=== PATIENT | female | born 1960 | race Caucasian/White ===

== ENCOUNTER → 2016-09-26 06:23 | Day surgery (SDC) | payer BC ==
--- NOTE | 2016-09-18 15:30 | HP ---
HISTORY AND PHYSICAL: DATE OF ADMISSION/SURGERY: 09/26/16 DATE OF OFFICE VISIT: 09/13/16 SURGEON: Alessandra Barone MD PROCEDURES: Right knee arthroscopy with partial medial and lateral meniscectomies, possible chondroplasty, possible synovectomy. CHIEF COMPLAINT: Right knee pain. HISTORY OF PRESENT ILLNESS: Ms. Cortés is a 56-year-old female with complaints of right knee pain. Her MRI showed medial and lateral meniscus tears and she has elected to proceed with a right knee arthroscopy with partial medial and lateral meniscectomies. The surgery is scheduled for 09/26/[address] Barone. PAST MEDICAL HISTORY: Hypertension, GERD, and obesity. PAST SURGICAL HISTORY: Gastric bypass, umbilical hernia repair, hysterectomy, anal fistula surgery, and kidney stone removal. CURRENT MEDICATIONS: 1. Meloxicam. 2. Multivitamin. 3. Garlic. 4. Garcinia cambogia. 5. Tylenol. ALLERGIES: LATEX and ADHESIVE TAPES. FAMILY HISTORY: Hypertension. SOCIAL HISTORY: She is a 56-year-old female. She lives alone. She works at [employer] in the [employer]. She denies use of tobacco, alcohol, or drugs. REVIEW OF SYSTEMS: A complete 14-point review of systems was reviewed with the patient, all is negative and noncontributory. PHYSICAL EXAMINATION GENERAL: She is well developed, well nourished, in no acute distress. VITAL SIGNS: She stands 5 feet 2 inches tall, weighs 220 pounds. Her blood pressure is 129/79, her heart rate is 88. HEENT: Normocephalic, atraumatic. NECK: Supple. No palpable lymph nodes. Trachea is midline. PULMONARY: The lungs are clear to auscultation bilaterally. CARDIO: Regular rate and rhythm. Strong S1, S2. No murmurs, gallops, or rubs. ABDOMEN: Soft, nontender, nondistended. NEUROLOGIC: She is alert and oriented x3. Cranial nerves II through XII are intact. MUSCULOSKELETAL: Right lower extremity, the skin is intact. There is a mild joint effusion. Tenderness over the medial and lateral joint line. She has full range of motion. Her lower extremity muscle group strengths are intact at 5/5. She has 2+ dorsalis pedis pulses and intact sensation. ASSESSMENT AND PLAN: Ms. Cortés is a 56-year-old female with complaints of right knee pain. Her MRI showed medial and lateral meniscus tear. She has elected to proceed with surgery. The surgery is scheduled for 09/26/[address] Barone discussed the risks and benefits of the surgery at today' s visit and all of her answers were answered. She will follow up with Dr. Barone 10 to 14 days after the surgery. DAMARI HOLT [id number]/[facility] #: [id number] MTDD
[~2016-09-26 06:23] MED LIST: Buffered Lidocaine 1% SYRIN* 3 ML/SYR SYRINGE INTRADERM ONE; Bupivacaine 0.5% SDV PF* 30 ML VIAL ONE; Dexamethasone IV* 4 MG/ML 1 ML (4 MG) IV SLOW PU ONE; Dexamethasone IV* 4 MG/ML 1 ML (4 MG) ONE; DiMENhydriNATE IV* 50 MG/ML VIAL IV PUSH PRN; EPINEPHrine AMP 1 MG/ML ONE; Famotidine IV* 10 MG/ML 2 ML (20 mg) IV ONE; Famotidine IV* 10 MG/ML 2 ML (20 mg) ONE; HYDROmorphone* 1 MG/ML 1 ML SYR ONE; Ketorolac INJ* 30 MG/ML 1 ML VIAL ONE; Lidocaine 2% PF * 5 ML VIAL ONE; Midazolam* 1 MG/ML 2 ML VIAL (2 MG) ONE; Ondansetron INJ* 2 MG/ML VIAL IV PRN; Ondansetron INJ* 2 MG/ML VIAL ONE; PROCHLORPERAZINE INJ 5 MG/ML 2 ML VIAL IV PRN; Propofol* 10 MG/ML 20 ML BTL IV PUSH ONE; Scopolamine 1.5 mg* PATCH TRANSDERM PRN; Scopolomine PATCH Remove* 1 NOTE MISC PATCH OFF ONE; ceFAZolin 2 GM PREMIX(*) 2 GM/50 ML BAG IVPB ONE; fentaNYL* 50 MCG/ML 2 ML VIAL (100 MCG VIAL) IV PRN; fentaNYL* 50 MCG/ML 2 ML VIAL (100 MCG VIAL) ONE; methylPREDNISolone ACETATE 80* 80 MG/ML 1 ML VIAL ONE
[2016-09-26 10:01] VITALS: BP 121/69
--- NOTE | 2016-09-27 02:12 | OP ---
DATE OF OPERATION: 09/26/16 - [facility] DATE OF : 60 SURGEON: Alessandra Barone MD CONTROL PANEL OPERATOR CRUDE UNIT: DAMARI Cabrera. This geriatric nursing assistant was crucial to the procedure throughout preparation, retraction, manipulation of the leg and wound closure. ANESTHESIOLOGIST: Dr. Davis. ANESTHESIA: General. PRE-OP DIAGNOSIS: Right knee pain with osteoarthritis, medial meniscal tear, lateral meniscal tear. POST-OP DIAGNOSIS: Right knee severe degenerative osteoarthritis with radial tear on the posterior medial meniscus and bucket handle tear of the lateral meniscus. OPERATIVE PROCEDURE: Right knee arthroscopy with partial medial meniscectomy and partial lateral meniscectomy as well as patellofemoral chondroplasty. EBL: 50 cc. COMPLICATIONS: None. SPECIMEN: None. BRIEF HISTORY/INDICATIONS: Ms. Cortés is a 56-year-old female with over two months of severe right knee pain and swelling. MRI showed medial and lateral meniscal tear. Her plain films also showed some arthritic changes. The patient failed conservative treatment with physical therapy and intraarticular steroid injection as well as anti-inflammatories. She elected to undergo right knee arthroscopy with partial meniscectomies and possible chondroplasty. Informed consent was obtained from the patient. She understood the risks of the procedure included but were not limited to bleeding, infection, damage to nearby structures, continued pain, need for further surgery, stroke, heart attack, blood clot and . She understood she would continue to have arthritic pain down the road. INTRAOPERATIVE FINDINGS: Intraoperatively, the patient was noted to have a radial tear of the posterior medial meniscus. She had a large displaced bucket- handle tear of the lateral meniscus involving the white-red zone. She had grade 3 and 4 severe [place] cartilage changes. This was severe tricompartmental osteoarthritis with exposed subchondral bone in the medial, lateral and patellofemoral compartments. DESCRIPTION OF PROCEDURE: Ms. Cortés was identified in the preanesthesia unit. Her right lower extremity was marked as the correct operative site. Informed consent was signed and placed in the chart. The patient was taken to the operating room and placed under general anesthesia. Tourniquet was placed on the right thigh, but was not inflated. Right lower extremity was prepped and draped in the usual sterile fashion. Preop time-out was made to correctly identify the patient side and site. Appropriate perioperative antibiotics were given within 1 hour of incision. A 0.5 cm standard anterolateral portal incision was made along the lateral joint line. Trocar was introduced. Light and water sources were turned on and there was immediate visualization of the knee joint. A tour of the knee joint was made. Suprapatellar pouch had no obvious abnormality. The patellofemoral compartment had cartilage flapping along the medial and lateral patella as well as exposed subchondral bone in the trochlear groove of the femur. The medial gutter had no obvious loose body or plica. Medial compartment had an obvious radial type tear in the posterior medial meniscus. Medial femoral condyle had exposed subchondral bone in a large area of the weightbearing surface. ACL appeared to be intact. The knee was placed in a [id number] position. There was a large displaced meniscal fragment that made visualization difficult. Lateral femoral condyle had exposed subchondral bone with cartilage wear. Under direct visualization, a medial portal incision was made with a 15 blade. A probe was introduced. A second tour of the knee joint was performed. Shaver was placed anteriorly to debride some synovitis. This allowed a better view of the medial and lateral compartments. Straight biter and shaver were used to perform partial medial meniscectomy along the white red zone of the posterior medial meniscus. A smooth border was obtained. The knee was placed in a figure -of-four position. A probe reduced the displaced bucket-handle tear of the lateral meniscus. This was carefully excised with a straight biter and shaver. Probe was used to ensure there was no other displaced meniscal fragments. This was carried out in the white red zone. It was noted that the lateral femoral condyle had a significant amount of exposed subchondral bone. Radiofrequency ablation wand was then used to smooth cartilage flapping along the patellar, medial and lateral facet. The knee was copiously irrigated with sterile saline. All instruments were carefully removed. Incisions were closed using interrupted 3-0 nylon suture. Intraarticular injection of 80 mg of Depo-Medrol and 6 cc of 0.25% Marcaine was placed in the knee joint. Xeroform, 4x4's and Webril were used to cover the incision. Jonathan wrap and cold pack were placed over this. The patient's anesthesia was reversed without difficulty. She was taken to the PACU in stable condition. Intended weightbearing will be weightbearing as tolerated. Intended DVT prophylaxis will be aspirin. [id number]/[facility] #: [id number] KERAD
== END | disposition home or self-care (01) ==
LOC: OR 06:23
PROVIDERS: ATTEND Orthopaedic Surgery Adult Reconstructive Orthopaedic Surgery
DX: M23.203 Derangement of unspecified medial meniscus due to old tear or injury, right knee (principal); M23.200 Derangement of unspecified lateral meniscus due to old tear or injury, right knee; M17.11 Unilateral primary osteoarthritis, right knee; I10 Essential (primary) hypertension; K21.9 Gastro-esophageal reflux disease without esophagitis; E66.9 Obesity, unspecified
CPT/HCPCS: J0171; J0690; J1040; J1100; J1170; J1885; J2250; J2405; J2704; J3010

== ENCOUNTER 2017-01-11 21:24 | Emergency (ER) | payer BC ==
[2017-01-11 21:54] VITALS: BP 138/80
--- NOTE | 2017-01-11 22:04 | UC ---
Eye Complaint HPI - HPI Summary HPI Summary: 56 y/o female presents to the urgent care c/o LF eye with itchiness and watery eyes since 1600 this afternoon. She removed her contact lenses as soon as symptoms started. Now it swelling has increased w/ redness and a watery eye discharge. Pt denies fever, eye pain or visual disturbances, SON, chest pain, ARENAS , dizziness, N/V/D. Pt has not other complains. - History of Current Complaint Chief Complaint: UCEye Stated Complaint: LEFT EYE ISSUE Time Seen by Provider: 01/11/17 21:47 Hx Obtained From: Patient ?: No Onset/Duration: Gradual Onset, Lasting Hours, Still Present Timing: Constant Severity Initially: Mild Severity Currently: Moderate Pain Intensity: 0 Pain Scale Used: 0-10 Numeric Location of Injury: Conjunctiva - conjunctiva w/ swelling and watery Aggravating Factor(s): Contact Lens Alleviating Factor(s): Nothing Associated Signs And Symptoms: Positive: Drainage (Clear), Swelling. Negative: Photophobia, Drainage (Purulent), Vision Impairment Bilateral, Vision Impairment Right, Vision Impairment Left, Fever - Risk Factors Penetrating Injury Risk Factor: Negative Acute Glaucoma Risk Factors: Negative Optic Artery Occlusion Risk Factors: Negative - Allergies/Home Medications Allergies/Adverse Reactions: Allergies Allergy/AdvReac Type Severity Reaction Status Date / Time Adhesive Tape Allergy Blisters Verified 01/11/17 21:34 Latex Allergy RASH, Verified 01/11/17 21:34 BLISTERS Home Medications: Home Medications Aspirin TAB* [Aspirin 325 MG TAB*] 325 mg PO DAILY 01/11/17 [History Confirmed 01/11/17] PMH/Surg Hx/FS Hx/Imm Hx Previously Healthy: Yes - Surgical History Surgical History: Yes Surgery Procedure, Year, and Place: 2009 [place] [facility] [place]. 2007 GASTRIC BYPASS SURGERY, [facility]. UMBILICAL HERNIA REPAIR. ANAL FISTULA REPAIR, [place]. right knee arthroscopy 2017 - Family History Known Family History: Positive: Hypertension - Social History Occupation: Employed Full-time Lives: With Family Alcohol Use: None Substance Use Type: None Smoking Status (MU): Never Smoked Tobacco Review of Systems Constitutional: Negative Skin: Negative Eyes: Eye Redness - left eye red with swelling and clear drainage. ENT: Negative Respiratory: Negative Cardiovascular: Negative Gastrointestinal: Negative Genitourinary: Negative Motor: Negative Neurovascular: Negative Musculoskeletal: Negative Neurological: Negative Psychological: Negative All Other Systems Reviewed And Are Negative: Yes Physical Exam Triage Information Reviewed: Yes Appearance: Well-Appearing, No Pain Distress, Well-Nourished, Obese Vital Signs: Initial Vital Signs Temp 98.1 F 01/11/17 21:35 Pulse 85 01/11/17 21:35 Resp 16 01/11/17 21:35 BP 138/80 01/11/17 21:35 Pulse Ox 98 01/11/17 21:35 Vital Signs Reviewed: Yes Eyes: Positive: Conjunctiva Inflamed - B/L eyes PERRLA, EOMI, fundi grossly normal. Left conjunctiva w/ redness and swelling and lateral side with a conjunctival chemosis ENT Exam: Normal ENT: Positive: Normal ENT inspection, Hearing grossly normal, Pharynx normal, TMs normal Dental Exam: Normal Neck exam: Normal Neck: Positive: Supple, Nontender, No Lymphadenopathy Respiratory Exam: Normal Respiratory: Positive: Chest non-tender, Lungs clear, Normal breath sounds Cardiovascular Exam: Normal Cardiovascular: Positive: RRR, No Murmur, Pulses Normal Abdominal Exam: Normal Abdomen Description: Positive: Nontender, No Organomegaly, Soft. Negative: CVA Tenderness (R), CVA Tenderness (L) Bowel Sounds: Positive: Present Musculoskeletal Exam: Normal Musculoskeletal: Positive: Strength Intact, ROM Intact, No Edema Neurological Exam: Normal Psychological Exam: Normal Skin Exam: Normal Eye Complaint Course/Dx - Course Course Of Treatment: 56 y/o female presents to the urgent care c/o LF eye with itchiness and watery eyes since 1600 this afternoon. She removed her contact lenses as soon as symptoms started. Now it swelling has increased w/ redness and a watery eye discharge. Pt denies fever, eye pain or visual disturbances, SON, chest pain, ARENAS, dizziness, N/V/D. Hx obtained. Dx conjunctival Chemosis. Pt given erythromycin ointment first dose at the clinic since pharmacy is closed. Pt Rx Erythromycin opthalmic ointment to keep eye lubricated and Pt advised to apply cold compresses to decrease swelling. Avoid wearing contact lenses until symptoms resolve. F/u with Opthalmologist on Friday if symptoms do not resolve. Pt understood and agreed and left the clinic ambulating. - Differential Dx/Diagnosis Differential Diagnosis/HQI/PQRI: Conjunctivitis, Corneal Abrasion, Hyphema, Orbital Cellulitis, Uveitis, Other - Conjunctival chemosis Provider Diagnoses: 1-Left eye with conjunctival chemosis - Physician Notification/Consults Discussed Patient Care With: Jorge Shields - DR shields agreed with Pt care and treatment Discharge - Discharge Plan Condition: Stable Disposition: HOME Prescriptions: Erythromycin OPTH OINT* [Erythromycin 0.5% OPTH OINT*] 1 applic LEFT EYE TID #1 ophth.oint Referrals: Joey Jin MD [Medical Doctor] - 2 Days Reinaldo Rodriguez MD [Primary Care Provider] - If Needed Additional Instructions: please apply ophthalmic ointment as directed. Please apply cold compresses to your affected eye. Do not wear contact lenses until symptoms resolve. If symptoms do not improve in next 2 days please f/u with the Vehicle Detailer Dr Jin for further evaluation and treatment. You are Dx with chemosis of the conjunctiva is a type of eye inflammation. The condition occurs when the lining of the eyelids swells. This transparent lining , called the conjunctiva, also covers the surface of the eye. The swelling of the conjunctiva is a sign that your eye has become irritated. The condition is more often simply referred to as chemosis.This condition is most often related to allergies, but may be caused by a viral or bacterial infection. However, chemosis is not contagious, meaning that you cannot catch it from another person. The mckeon to treating chemosis is reducing the inflammation. Managing the swelling can reduce discomfort and minimize any negative impact on your vision. Your doctor may prescribe medicated eye drops to lubricate your membranes. Depending on the severity of your condition, you may be directed to use an over- the-counter lubricant instead. Cool compresses placed over the eyes may also be recommended to ease discomfort and inflammation.
[2017-01-11] MEDS ORDERED: Erythromycin OPTH OINT* APPLIC OINT LEFT EYE ONE (22:25)
[2017-01-12] MEDS ORDERED: Erythromycin OPTH OINT* APPLIC OINT RIGHT EYE SCH (09:00)
== END 2017-01-11 22:32 | disposition home or self-care (01) ==
LOC: UCCORT 21:24
DX: H11.422 Conjunctival edema, left eye (principal); E66.9 Obesity, unspecified; Z79.82 Long term (current) use of aspirin; Z90.710 Acquired absence of both cervix and uterus; Z98.84 Bariatric surgery status; Z91.040 Latex allergy status; Z91.048 Other nonmedicinal substance allergy status
CPT/HCPCS: 99213; A9270-GY; G0463

== ENCOUNTER 2017-03-17 17:17 | Emergency (ER) | payer BC ==
--- NOTE | 2017-03-17 17:22 | UC ---
Abdominal Pain Female HPI - HPI Summary HPI Summary: 56 year old female presents with severe RLQ abdominal pain - History of Current Complaint Stated Complaint: STOMACH PAIN Time Seen by Provider: 03/17/17 17:21 Hx Obtained From: Patient Onset/Duration: Sudden Onset Severity Initially: Moderate Severity Currently: Moderate Pain Scale Used: 0-10 Numeric - 8 Allergies/Adverse Reactions: Allergies Allergy/AdvReac Type Severity Reaction Status Date / Time Adhesive Tape Allergy Blisters Verified 03/17/17 17:23 Latex Allergy RASH, Verified 03/17/17 17:23 BLISTERS Home Medications: Home Medications Cyanocobalamin TAB* [Vitamin B12 TAB*] 2 tab PO DAILY 03/17/17 [History Confirmed 03/17/17] Naproxen [Naproxen DR 500 MG TAB] 2 tab PO TID PRN 03/17/17 [History Confirmed 03/17/17] PMH/Surg Hx/FS Hx/Imm Hx - Surgical History Surgical History: Yes Surgery Procedure, Year, and Place: 2009 CYSTOSCOPY WITH stent s [facility] [place]. 2009 [place]ERECTOMY, [place]. 2006 GASTRIC BYPASS SURGERY, [facility]. UMBILICAL HERNIA REPAIR. ANAL FISTULA REPAIR, [place] - Family History Known Family History: Positive: Hypertension - Social History Alcohol Use: None Substance Use Type: None Smoking Status (MU): Never Smoked Tobacco Review of Systems Constitutional: Negative Skin: Negative Eyes: Negative ENT: Negative Respiratory: Negative Cardiovascular: Negative Gastrointestinal: Abdominal Pain - RLQ ABDOMINAL PAIN Genitourinary: Negative Motor: Negative Neurovascular: Negative Musculoskeletal: Negative Neurological: Negative Psychological: Negative All Other Systems Reviewed And Are Negative: Yes Physical Exam Triage Information Reviewed: Yes Eye Exam: Normal ENT Exam: Normal Dental Exam: Normal Neck exam: Normal Neck: Positive: 1 Respiratory Exam: Normal Cardiovascular Exam: Normal Abdomen Description: Positive: Guarding, Other: - RLQ PAIN Musculoskeletal Exam: Normal Neurological Exam: Normal Psychological Exam: Normal Skin Exam: Normal Abd Pain Female Course/Dx - Differential Dx/Diagnosis Provider Diagnoses: SEVERE RLQ PAIN Discharge - Discharge Plan Condition: Guarded Disposition: [facility] Discharge Disposition Comment: PATIENT SUGGESTED TO GO TO THE ER FOR SEVERE RLQ PAIN Patient Education Materials: Abdominal Pain (ED) Referrals: Reinaldo Rodriguez MD [Primary Care Provider] -
[2017-03-17 17:48] VITALS: BP 100/66
== END 2017-03-17 17:35 | disposition short-term general hospital (02) ==
LOC: UCCORT 17:17
DX: R10.31 Right lower quadrant pain (principal); Z91.040 Latex allergy status; Z98.84 Bariatric surgery status
CPT/HCPCS: 93005; 99213; G0463

== ENCOUNTER 2018-11-02 16:41 | Emergency (ER) | payer BC ==
--- OUTSIDE RECORDS SUMMARY | 2018-11-02 17:00 | XMS REPORT | Continuity of Care Document ---
:1960 External Reference #:[id number] Author Name PadronCarmel hardwick Care Team Providers Name Role Phone Reinaldo Rodriguez MD Primary Care Physician Unavailable Payers Date Identification Numbers Payment Provider Subscriber Policy Number: [id number] [employer]ets Luke Cortés PayID: [id number] [address] [address] [place] [address] Effective: 1996 Group Name: [employer] Compensation [address] [place] [id number] Effective: 2012 Policy Number: Eliza Cortés [id number] Services Onset: 2012 Group Name: Workers' Compensation [address] [address] [place] [address] Problems Active Problems Provider Date Localized, primary osteoarthritis Alessandra Barone M.D. Onset: 07/31/2016 Current tear of lateral cartilage AND/OR Alessandra Barone M.D. Onset: 07/31/2016 meniscus of knee Perirectal abscess Onset: 02/23/2018 History of bariatric surgical procedure Onset: 02/23/2018 Sciatica Onset: 05/21/2012 Arthralgia of the lower leg Onset: 05/21/2012 Candidiasis of skin and nails Onset: 05/21/2012 Acute upper respiratory infection Onset: 05/21/2012 Acute bronchitis Onset: 05/21/2012 Disorder of teeth AND/OR supporting structures Onset: 05/21/2012 Abrasion of wrist Onset: 05/21/2012 Peripheral venous insufficiency Onset: 05/21/2012 Varicose veins of lower extremity Onset: 05/21/2012 Acute sinusitis Onset: 05/21/2012 Cellulitis and abscess of face Onset: 05/21/2012 Hematuria syndrome Onset: 05/21/2012 Family History Date Family Member(s) Observation Comments General No Current Problems Father Hypercholesterolemia Father Hypertension Father irritable bowel Mother Hypertension Mother Hypercholesterolemia Mother Gout Social History Type Date Description Comments Sex Unknown Marital Status Single Occupation Currently Working [employer] department ETOH Use Denies alcohol use Tobacco Use Start: Unknown Patient has never smoked Recreational Drug Use Denies Drug Use Smoking Status Reviewed: 10/21/18 Patient has never smoked Exercise Type/Frequency Exercises sporadically Allergies, Adverse Reactions, Alerts Description No Known Drug Allergies Medications Active Medications SIG Qnty Indications Ordering Provider Date Ibuprofen 1 tab by mouth 90tabs M17.0 Alessandra Barone 02/20/2018 800mg Tablets every 8 hours as M.D. needed with food Multivitamin Adult 1 by mouth every Unknown day Tablets Biotin 1 tab by mouth Unknown daily Osteo Bi-Flex 1 tab by mouth Unknown twice daily Fish Oil 2 by mouth every Unknown Capsules day Probiotic Acidophilus 1 by mouth daily Unknown Stool Softener at hs Unknown Polyethylene Glycol Use 1 Packet Unknown 3350 Mixed In Water 3350NF Powder AT Bedtime as needed, Hold For Loose BM History Medications Naproxen one twice a 20tabs L03.90 Reinaldo 10/22/2017 - 375mg day with food MD Jennifer 02/23/2018 Tablets Cephalexin 1 by mouth 20tabs I80.00 Reinaldo 10/22/2017 - 500mg twice a day MD Jennifer 02/23/2018 Tablets Aspirin Adult Low 1 by mouth 90tabs Reinaldo 07/30/2017 - Dose every day MD Jennifer 09/08/2018 81mg Tablets Vitamin B-12 1 by mouth 30tabs Reinaldo 07/30/2017 - 500mcg every day MD Jennifer 02/23/2018 Tablets Meloxicam take 1 tab by 30tabs M25.561 Alessandra Barone M.D. 11/13/2016 - 15mg mouth with 01/06/2017 Tablets food once a day Oxycodone-Acetaminop 1-2 tabs by 60tabs Alessandra Barone M.D. 09/26/2016 - hen mouth every 6 01/06/2017 5-325mg Tablets hours as needed for pain Meloxicam 1 by mouth per 30tabs S92.354D Jose Angel Gutiérrez, 06/12/2016 - 7.5mg day-per M.D. 12/09/2016 Tablets patient only taking three -four times per week. Amoxicillin 1 po bid 20tabs 466.0 Reinaldo 03/19/2012 - 875mg MD Jennifer 03/24/2013 Tablets Diflucan 1 po qd 2tabs 112.3 Reinaldo 07/26/2011 - 150mg MD Jennifer 09/22/2012 Tablets Nystatin apply to 45units B37.2 Reinaldo 07/26/2011 - affected area MD Jennifer 09/08/2018 [id number] Cream three times a day as needed for rash Tylenol Arthritis 2 by mouth Unknown - Pain every 8 hours 05/07/2016 650mg Tablets ER as needed Acetaminophen 2 tablets Unknown - 500mg every 6 hours 06/24/2016 Tablets as needed for pain Aleve 2 po as needed Unknown - 220mg Tablets 06/24/2016 Garlic 1500 Unknown - 1500mg 01/06/2017 Capsules Garcinia Cambogia 2 by mouth Unknown - twice a day 03/02/2017 1000mg Tablets Vitamin D Unknown - 01/06/2017 Naproxen 1 tablet with 30tabs Unknown - 500mg food by mouth 06/10/2017 Tablets twice a day Vitamin D take 1 capsule Unknown - (Ergocalciferol) by mouth every 10/20/2018 week [id number] Capsules Tylenol 8 Hour 1 tab q6 hours Unknown - Arthritis Pain as needed pain 03/02/2017 650mg Tablets ER Vitamin B12 1 by mouth bid Unknown - 100mcg 11/16/2017 Tablets Nortemp Unknown - 160mg/5ML 06/10/2017 Suspension Acetaminophen 2 tabs po bid Unknown - 500mg 06/12/2018 Tablets Turmeric Unknown - 10/20/2018 Metronidazole take 1 tablet Unknown - 500mg by mouth three 02/23/2018 Tablets times a day Ciprofloxacin HCL take 1 tablet Unknown - by mouth every 02/23/2018 500mg Tablets 12 hours Medications Administered in Office Medication SIG Qnty Indications Ordering Provider Date Depomedrol 40MG Alessandra Barone M.D. 09/09/2018 Injection Depomedrol 40MG Alessandra Baroen M.D. 09/09/2018 Injection Depomedrol 40MG Alessandra Barone M.D. 06/12/2018 Injection Depomedrol 40MG Alessandra Barone M.D. 06/12/2018 Injection Celestone 3 mg and 3mg Jose Angel Gutiérrez M.D. 04/01/2018 Injection Depomedrol 40MG Alessandra Barone M.D. 02/20/2018 Injection Depomedrol 40MG Alessandra Barone M.D. 02/20/2018 Injection Luciusomedrol 40MG Alessandra Barone M.D. 11/17/2017 Injection Depomedrol 40MG Alessandra Barone M.D. 11/17/2017 Injection Depomedrol 40MG DAMARI Mcgraw 08/04/2017 Injection Depomedrol 40MG DAMARI Mcgraw 08/04/2017 Injection Depomedrol 40MG Alessandra Barone M.D. 03/24/2017 Injection Depomedrol 40MG Abisai Hammer MD 06/25/2016 Injection Immunizations CPT Code Status Date Vaccine Lot # [id number] Given 02/23/2018 Tdap - Tetanus/Diptheria/Acellular Pertussis 34567 Given 03/30/2014 Influenza Virus 3Yrs & Over 73791 Given 03/24/2013 Influenza Virus 3Yrs & Over 55607 Given 02/22/2010 Influenza Virus 3Yrs & Over Vital Signs Date Vital Result Comment 10/21/2018 1:13pm Height 62 inches 5'2" Heart Rate 88 /min BP Systolic Sitting 122 mmHg BP Diastolic Sitting 80 mmHg Respiratory Rate 16 /min Pain Level 4 O2 % BldC Oximetry 97 % 09/09/2018 11:51am Height 62 inches 5'2" Weight 222.00 lb BP Systolic 128 mmHg BP Diastolic 78 mmHg Body Temperature 97.3 F Pain Level 3 BMI (Body Mass Index) 40.6 kg/m2 06/18/2018 2:58pm Height 62 inches 5'2" Weight 218.00 lb Heart Rate 80 /min BP Systolic 102 mmHg BP Diastolic 62 mmHg Respiratory Rate 16 /min O2 % BldC Oximetry 97 % BMI (Body Mass Index) 39.9 kg/m2 06/12/2018 3:38pm Height 62 inches 5'2" Weight 214.00 lb BP Systolic 134 mmHg BP Diastolic 88 mmHg BMI (Body Mass Index) 39.1 kg/m2 04/01/2018 2:36pm Height 62 inches 5'2" Weight 215.00 lb BP Systolic 122 mmHg BP Diastolic 82 mmHg BMI (Body Mass Index) 39.3 kg/m2 02/25/2018 3:20pm Height 62 inches 5'2" Weight 213.00 lb BP Systolic Sitting 128 mmHg BP Diastolic Sitting 78 mmHg Respiratory Rate 16 /min Pain Level 2 BMI (Body Mass Index) 39.0 kg/m2 02/23/2018 3:18pm Height 61 inches Weight 210.00 lb BP Systolic 140 mmHg BP Diastolic 80 mmHg Respiratory Rate 12 /min Body Temperature 98.0 F BMI (Body Mass Index) 39.7 kg/m2 02/20/2018 3:21pm Height 62 inches 5'2" Weight 213.50 lb Heart Rate 92 /min BP Systolic Sitting 140 mmHg BP Diastolic Sitting 86 mmHg Respiratory Rate 16 /min Pain Level 7 BMI (Body Mass Index) 39.0 kg/m2 11/17/2017 3:57pm Height 62 inches 5'2" Weight 208.00 lb BP Systolic 136 mmHg BP Diastolic 86 mmHg Body Temperature 98.1 F BMI (Body Mass Index) 38.0 kg/m2 11/05/2017 3:53pm Height 62 inches 5'2" Weight 204.00 lb BP Systolic Sitting 122 mmHg BP Diastolic Sitting 76 mmHg Respiratory Rate 16 /min Pain Level 2 BMI (Body Mass Index) 37.3 kg/m2 10/22/2017 9:15am Weight 208.00 lb BP Systolic 140 mmHg BP Diastolic 80 mmHg 09/15/2017 3:38pm Weight 204.00 lb BP Systolic 124 mmHg BP Diastolic 70 mmHg 08/04/2017 3:13pm Height 62 inches 5'2" Weight 219.00 lb BP Systolic 132 mmHg BP Diastolic 80 mmHg Respiratory Rate 16 /min Body Temperature 96.5 F Pain Level 3 BMI (Body Mass Index) 40.1 kg/m2 07/30/2017 3:10pm Weight 216.00 lb BP Systolic 128 mmHg BP Diastolic 80 mmHg 06/11/2017 2:17pm Height 62 inches 5'2" Heart Rate 94 /min BP Systolic 102 mmHg BP Diastolic 76 mmHg Respiratory Rate 12 /min no respiratory difficulties Pain Level 5 O2 % BldC Oximetry 98 % 03/25/2017 3:58pm Weight 227.00 lb BP Systolic 130 mmHg BP Diastolic 80 mmHg 03/24/2017 3:38pm Height 62 inches 5'2" Weight 246.00 lb Heart Rate 86 /min BP Systolic 138 mmHg BP Diastolic 82 mmHg Body Temperature 95.9 F BMI (Body Mass Index) 45.0 kg/m2 03/05/2017 3:31pm Height 62 inches 5'2" Weight 236.00 lb Heart Rate 70 /min BP Systolic Sitting 126 mmHg BP Diastolic Sitting 74 mmHg Respiratory Rate 16 /min Pain Level 5 BMI (Body Mass Index) 43.2 kg/m2 01/29/2017 2:33pm Height 62 inches 5'2" Weight 246.00 lb Heart Rate 78 /min BP Systolic Sitting 134 mmHg BP Diastolic Sitting 70 mmHg Respiratory Rate 18 /min Pain Level 1 BMI (Body Mass Index) 45.0 kg/m2 01/28/2017 3:24pm Weight 247.00 lb BP Systolic 126 mmHg BP Diastolic 78 mmHg 01/15/2017 9:06am Height 62 inches 5'2" Weight 246.00 lb Heart Rate 95 /min BP Systolic 130 mmHg BP Diastolic 743 mmHg Pain Level 3 BMI (Body Mass Index) 45.0 kg/m2 01/08/2017 2:23pm Height 62 inches 5'2" Weight 248.00 lb Heart Rate 96 /min BP Systolic Sitting 148 mmHg BP Diastolic Sitting 80 mmHg Respiratory Rate 20 /min Pain Level 4 BMI (Body Mass Index) 45.4 kg/m2 01/01/2017 2:08pm Weight 248.00 lb BP Systolic 128 mmHg BP Diastolic 80 mmHg 12/19/2016 1:36pm Height 62 inches 5'2" Weight 240.00 lb Heart Rate 94 /min BP Systolic 150 mmHg BP Diastolic 74 mmHg Respiratory Rate 16 /min Pain Level 4 BMI (Body Mass Index) 43.9 kg/m2 12/11/2016 2:46pm Height 62 inches 5'2" Weight 240.00 lb Heart Rate 88 /min BP Systolic Sitting 118 mmHg BP Diastolic Sitting 66 mmHg Respiratory Rate 18 /min Body Temperature 99.4 F Pain Level 6 BMI (Body Mass Index) 43.9 kg/m2 11/13/2016 8:42am Height 62 inches 5'2" Weight 240.00 lb Heart Rate 89 /min BP Systolic 139 mmHg BP Diastolic 81 mmHg Body Temperature 98.4 F Pain Level 4 BMI (Body Mass Index) 43.9 kg/m2 10/11/2016 8:42am Height 62 inches 5'2" Weight 240.00 lb Heart Rate 78 /min BP Systolic 146 mmHg BP Diastolic 86 mmHg Body Temperature 97.8 F Pain Level 3 BMI (Body Mass Index) 43.9 kg/m2 09/13/2016 3:24pm Height 62 inches 5'2" Weight 250.00 lb Heart Rate 88 /min BP Systolic 129 mmHg BP Diastolic 79 mmHg Respiratory Rate 17 /min Body Temperature 98.3 F Pain Level 6 BMI (Body Mass Index) 45.7 kg/m2 09/11/2016 11:15am Height 61.6 inches Weight 245.00 lb BP Systolic 160 mmHg BP Diastolic 80 mmHg BMI (Body Mass Index) 45.4 kg/m2 07/31/2016 9:50am Height 62 inches 5'2" Weight 220.00 lb Heart Rate 104 /min BP Systolic 128 mmHg BP Diastolic 80 mmHg Respiratory Rate 20 /min Pain Level 7 BMI (Body Mass Index) 40.2 kg/m2 07/24/2016 10:29am Height 62 inches 5'2" Weight 220.00 lb Heart Rate 80 /min BP Systolic Sitting 124 mmHg BP Diastolic Sitting 76 mmHg Respiratory Rate 18 /min Pain Level 6 BMI (Body Mass Index) 40.2 kg/m2 07/10/2016 3:17pm Weight 220.00 lb Heart Rate 84 /min BP Systolic Sitting 128 mmHg BP Diastolic Sitting 78 mmHg Respiratory Rate 20 /min Pain Level 6 in knee. 3 in the foot. 06/25/2016 2:35pm Height 62 inches 5'2" Weight 220.00 lb BP Systolic 126 mmHg BP Diastolic 84 mmHg BMI (Body Mass Index) 40.2 kg/m2 06/12/2016 3:03pm Heart Rate 105 /min BP Systolic Sitting 154 mmHg BP Diastolic Sitting 82 mmHg Pain Level 4 for the foot. 7/knee O2 % BldC Oximetry 98 % 05/08/2016 2:34pm Heart Rate 93 /min BP Systolic Sitting 142 mmHg BP Diastolic Sitting 98 mmHg Pain Level 6 O2 % BldC Oximetry 96 % 04/11/2015 9:14am Height 62 inches 5'2" Weight 210.00 lb Heart Rate 80 /min BMI (Body Mass Index) 38.4 kg/m2 03/28/2015 9:05am Height 62 inches 5'2" Weight 210.00 lb Heart Rate 82 /min BP Systolic Sitting 128 mmHg BP Diastolic Sitting 86 mmHg BMI (Body Mass Index) 38.4 kg/m2 03/24/2013 3:29pm Weight 214.00 lb BP Systolic 120 mmHg BP Diastolic 80 mmHg 09/22/2012 3:09pm Weight 206.00 lb BP Systolic 110 mmHg BP Diastolic 80 mmHg 09/16/2012 9:32am Weight 209.00 lb BP Systolic 130 mmHg BP Diastolic 82 mmHg 09/09/2012 3:55pm BP Systolic 128 mmHg BP Diastolic 88 mmHg 09/09/2012 4:11pm Weight 151.00 lb BP Systolic 90 mmHg BP Diastolic 70 mmHg 08/12/2012 3:32pm Weight 213.00 lb BP Systolic 120 mmHg BP Diastolic 78 mmHg 07/16/2012 4:03pm Weight 210.00 lb BP Systolic 110 mmHg BP Diastolic 76 mmHg 07/03/2012 8:37am Weight 210.00 lb BP Systolic 110 mmHg BP Diastolic 76 mmHg 06/25/2012 3:21pm Weight 211.50 lb BP Systolic 116 mmHg BP Diastolic 78 mmHg 03/19/2012 2:52pm Weight 202.00 lb Body Temperature 99.0 F 07/26/2011 11:08am Weight 193.00 lb BP Systolic 116 mmHg BP Diastolic 80 mmHg Results Test Date Facility Test Result H/L Range Note Inr/Protime 06/19/2018 [facility] Inr 0.89 N 0.77-1.[address] [place] [address] [phone] CBC Auto Diff 06/19/2018 [facility] White Blood 6.6 10^3/uL N 3.5-10.[address] [place] [address] [phone] Red Blood Count 4.67 10^6/uL N 4.00-5.40 Hemoglobin 14.1 g/dL N 12.0-16.0 Hematocrit 43 % N 35-47 Mean Corpuscular Volume 91 fL N 80-97 Mean Corpuscular Hemoglobin 30 pg N 27-31 Mean Corpuscular HGB Conc 33 g/dL N 31-36 Red Cell Distribution Width 15 % N 10.5-15 Platelet Count 212 10^3/uL N 150-450 Mean Platelet Volume 8.2 fL N 7.4-10.4 Abs Neutrophils 4.0 10^3/uL N 1.5-7.7 Abs Lymphocytes 2.1 10^3/uL N 1.0-4.8 Abs Monocytes 0.4 10^3/uL N 0-0.8 Abs Eosinophils 0.1 10^3/uL N 0-0.6 Abs Basophils 0 10^3/uL N 0-0.2 Abs Nucleated RBC 0 10^3/uL Granulocyte % 60.5 % Lymphocyte % 31.5 % Monocyte % 6.2 % Eosinophil % 1.2 % Basophil % 0.6 % Nucleated Red Blood Cells % 0.1 Comp Metabolic Panel 06/19/2018 [facility] Sodium 141 mmol/L N 135-145 [address] [place] [address] [phone] Potassium 4.4 mmol/L N 3.5-5.0 Chloride 104 mmol/L N 101-111 Co2 Carbon Dioxide 28 mmol/L N 22-32 Anion Gap 9 mmol/L N 2-11 Glucose 89 mg/dL N 70-100 Blood Urea Nitrogen 17 mg/dL N 6-24 Creatinine 0.46 mg/dL Low 0.51-0.95 BUN/Creatinine Ratio 37.0 High 8-20 Calcium 9.7 mg/dL N 8.6-10.3 Total Protein 6.9 g/dL N 6.4-8.9 Albumin 4.2 g/dL N 3.2-5.2 Globulin 2.7 g/dL N 2-4 Albumin/Globulin Ratio 1.6 N 1-3 Total Bilirubin 0.70 mg/dL N 0.2-1.0 Alkaline Phosphatase 88 U/L N 34-104 Alt 19 U/L N 7-52 Ast 17 U/L N 13-39 Egfr Non- 139.5 >60 Egfr 168.8 >60 1 Laboratory test finding 02/25/2018 N2N/CCD Import Ferritin 25.5 ng/mL 11 -307 RBC Folate C ng/mL 2 TSH (Thyroid Stim Horm) 0.76 mcIU/mL 0.34-5.6 Vitamin B12 433 pg/mL 180-914 3 Vitamin D Total 25(Oh) 44.3 ng/mL 20-50 CBC Auto Diff 02/25/2018 N2N/CCD Import Abs Basophils 0 10^3/uL 0-0.2 Abs Eosinophils 0.1 10^3/uL 0-0.6 Abs Lymphocytes 1.6 10^3/uL 1-4.8 Abs Monocytes 0.6 10^3/uL 0-0.8 Abs Neutrophils 4.9 10^3/uL 1.5-7.7 Abs Nucleated RBC 0 10^3/uL Basophil % 0.5 % 0-2 Eosinophil % 0.8 % 0-6 Granulocyte % 68.4 % 38-83 Hematocrit 42 % 35-47 Hemoglobin 14.0 g/dL 12-16 Lymphocyte % 22.6 % Low 25-47 Mean Corpuscular HGB Conc 33 g/dL 31-36 Mean Corpuscular Hemoglobin 30 pg 27-31 Mean Corpuscular Volume 91 fL 80-97 Mean Platelet Volume 8.5 um3 7.4-10.4 Monocyte % 7.7 % High 0-7 Nucleated Red Blood Cells % 0.1 1 Platelet Count 223 10^3/uL 150-450 Red Blood Count 4.65 10^6/uL 4-5.4 Red Cell Distribution Width 14 % 10.5-15 White Blood Count 7.2 10^3/uL 3.5-10.8 Comp Metabolic Panel 02/25/2018 N2N/CCD Import Albumin 4.4 g/dL 3.2-5.2 Albumin/Globulin Ratio 2.0 1 1-3 Alkaline Phosphatase 94 U/L 34-104 Alt 20 U/L 7-52 Anion Gap 9 mmol/L 2-11 Ast 18 U/L 13-39 BUN/Creatinine Ratio 35.6 1 High 8-20 Blood Urea Nitrogen 16 mg/dL 6-24 Calcium 9.5 mg/dL 8.6-10.3 Chloride 105 mmol/L 101-111 Co2 Carbon Dioxide 28 mmol/L 22-32 Creatinine 0.45 mg/dL Low 0.51-0.95 Egfr 173.8 1 4 Egfr Non- 143.6 1 Globulin 2.2 g/dL 2-4 Glucose 90 mg/dL 70-100 Potassium 4.1 mmol/L 3.5-5 Sodium 142 mmol/L 135-145 Total Bilirubin 0.80 mg/dL 0.2-1 Total Protein 6.6 g/dL 6.4-8.9 Lipid Profile (Trig/Chol/HDL) 02/25/2018 N2N/CCD Import Cholesterol 200 mg/ dL 5 HDL Cholesterol 62.8 mg/dL 6 LDL Cholesterol 109 mg/dL 7 Triglycerides 143 mg/dL 8 Liver Function 02/25/2018 N2N/CCD Import Direct Bilirubin 0.10 mg/dL 0.03-0.18 Panel Indirect Bilirubin 0.7 mg/dL 0.3-1 Laboratory test 02/23/2018 N2N/CCD Import [facility] Pap Laboratory Allia 9 finding <See Note> Laboratory test 09/10/2017 N2N/CCD Import Magnesium 2.2 mg/dL 1.8-2. 10 finding 4 Basic Metabolic 09/10/2017 N2N/CCD Import Anion Gap 7 mEq/L Low 8-16 Panel BUN 11 mg/dL 7-18 BUN/Creat 27.5 ratio Calcium 8.7 mg/dL 8.5-10.1 Carbon Dioxide 28 mmol/L 21-32 Chloride 110 mmol/L High 98-107 Creatinine 0.4 mg/dL Low 0.6-1.3 Glom Filtration Rate, Estimate >60 mL/min Glucose 99 mg/dL 74-106 If >60 mL/min 11 Potassium 3.7 mmol/L 3.5-5.1 Sodium 145 mmol/L 136-145 CBC 09/10/2017 N2N/CCD Import Hematocrit 36.0 % 36-46.1 Hemoglobin 11.5 gm/dL Low 11.6-15.8 Mean Cell Volume 93.5 fl 80.9-99 Mean Corpuscular HGB 29.9 pg 25.9-32.7 Mean Corpuscular HGB Conc 31.9 g/dL 30.8-34.3 Mean Platelet Volume 10.6 fL 8.9-12.4 Platelet Count 213 K/uL 155-360 Red Blood Count 3.85 M/uL Low 3.9-5.4 Red Cell Distri Width %CV 15.1 % High 11.7-14.4 White Blood Count 7.3 K/uL 3.1-10.7 Basic Metabolic Panel 09/09/2017 N2N/CCD Import Anion Gap 7 mEq/L Low 8- 16 12 BUN 13 mg/dL 7-18 BUN/Creat 26.0 ratio Calcium 9.4 mg/dL 8.5-10.1 Carbon Dioxide 29 mmol/L 21-32 Chloride 108 mmol/L High 98-107 Creatinine 0.5 mg/dL Low 0.6-1.3 Glom Filtration Rate, Estimate >60 mL/min Glucose 116 mg/dL High 74-106 If >60 mL/min 13 Potassium 4.1 mmol/L 3.5-5.1 Sodium 144 mmol/L 136-145 CBS W/Automated Diff 09/09/2017 N2N/CCD Import Bas% 0.1 % 0-1.1 Baso # 0.01 K/uL 0-0.1 Eo% 0.0 % 0-6.6 Eos # 0.00 K/uL 0-0.5 Hematocrit 38.3 % 36-46.1 Hemoglobin 12.5 gm/dL 11.6-15.8 Lymph # 0.97 K/uL Low 1-4 Lymph % 8.5 % Low 20-42 Mean Cell Volume 92.5 fl 80.9-99 Mean Corpuscular HGB 30.2 pg 25.9-32.7 Mean Corpuscular HGB Conc 32.6 g/dL 30.8-34.3 Mean Platelet Volume 10.6 fL 8.9-12.4 [facility] # 0.77 K/uL 0.3-0.9 [facility] [facility] % 6.7 % 4.3-13.2 Neut# 9.69 K/uL High 1.8-7 Neut% 84.7 % High 40.4-72.8 Platelet Count 199 K/uL 155-360 Red Blood Count 4.14 M/uL 3.9-5.4 Red Cell Distri Width %CV 15.5 % High 11.7-14.4 Red Cell Distri Width SD 50.6 fl High 3-47 White Blood Count 11.4 K/uL High 3.1-10.7 Laboratory test finding 09/08/2017 N2N/CCD Import Ampicillin 16 1 R 14 Ampicillin/Sulbactam 4 1 S Cefazolin <=4 S Cefepime <=1 S Ceftazidime <=1 S Ceftriaxone <=1 S Ciprofloxacin <=0.25 S Gentamicin <=1 S Imipenem <=0.25 S Levofloxacin <=0.12 S Piperacillin/Tazobactam <=4 S Tobramycin <=1 S Trimethoprim/Sulfamethoxazole <=20 S Laboratory test 09/08/2017 [facility] Import Source: Urine, Clean Cat 15 , 16 finding <See Note> Urine Bilirubin - Dipstick Negative Urine Blood Trace Urine Clarity Clear Urine Color Yellow Urine Glucose - Dipstick Negative mg/dL Urine Ketone Negative mg/dL Urine Leuk Esterase Negative Urine Nitrite - Dipstick Negative Urine PH 6.0 1 Low 6.5-7.5 Urine Protein - Dipstick Negative mg/dL Urine Specific [place] 1.025 1 1.01-1.03 Urine Urobilinogen - Dipstick 0.2 E.U./dL 0.2-1 Anaerobic 09/08/2017 [facility] Import Anaerobic Bacteroides Frag Abnormal 17, 18 Culture W/ GR Culture <See Note> Stain Gram Stain Many White Blood <See Note> 19 Gram Stain Moderate Gram PO <See Note> 20 Gram Stain Moderate Gram NE <See Note> 21 Quantity Moderate Recommended Therapy: Metrondiazole Or <See Note> 22 Routine 09/08/2017 [facility] Import Aerobic Streptococcus An Abnormal 23 Culture W/ Culture <See Note> Gram Stain Aerobic Culture Klebsiella Pneum <See Note> Abnormal 24 Aerobic Culture Beta Streptococc <See Note> Abnormal 25 Gram Stain Moderate Gram PO <See Note> 26 Gram Stain Many White Blood <See Note> 27 Gram Stain Moderate Gram NE <See Note> 28 Quantity Many Quantity Few Quantity Few Recommended Therapy: Penicillin Or Am <See Note> 29 Laboratory test 09/08/2017 [facility] Import HCG,Serum Negative 30 finding (Qualitative) Lipase 107 U/L 56-289 Slide Review (See Note) 31 Comprehensive Metabolic Panel 09/08/2017 [facility] Import Alb/Glob 0.8 ratio Albumin 3.7 g/dL 3.4-5 Alkaline Phosphatase 97 U/L 45-117 Anion Gap 5 mEq/L Low 8-16 BUN 13 mg/dL 7-18 BUN/Creat 21.6 ratio Bilirubin,Total 0.7 mg/dL 0.2-1 Calcium 10.0 mg/dL 8.5-10.1 Carbon Dioxide 30 mmol/L 21-32 Chloride 104 mmol/L 98-107 Creatinine 0.6 mg/dL 0.6-1.3 Globulin 4.7 g/dL High 1.9-4.3 Glom Filtration Rate, Estimate >60 mL/min Glucose 109 mg/dL High 74-106 If >60 mL/min 32 Potassium 3.8 mmol/L 3.5-5.1 SGPT/Alt 20 U/L 12-78 Sgot/Ast 19 U/L 15-37 Sodium 139 mmol/L 136-145 Total Protein 8.4 g/dL High 6.4-8.2 CBS W/Automated Diff 09/08/2017 N2N/CCD Import Bas% 0.1 % 0-1.1 Baso # 0.01 K/uL 0-0.1 Eo% 0.3 % 0-6.6 Eos # 0.03 K/uL 0-0.5 Hematocrit 44.0 % 36-46.1 Hemoglobin 14.4 gm/dL 11.6-15.8 Lymph # 1.26 K/uL 1-4 Lymph % 10.6 % Low 20-42 Mean Cell Volume 89.1 fl 80.9-99 Mean Corpuscular HGB 29.1 pg 25.9-32.7 Mean Corpuscular HGB Conc 32.7 g/dL 30.8-34.3 Mean Platelet Volume 9.9 fL 8.9-12.4 [facility] # 0.97 K/uL High 0.3-0.9 [facility] [facility] % 8.2 % 4.3-13.2 Neut# 9.59 K/uL High 1.8-7 Neut% 80.8 % High 40.4-72.8 Platelet Count 237 K/uL 155-360 Red Blood Count 4.94 M/uL 3.9-5.4 Red Cell Distri Width %CV 15.5 % High 11.7-14.4 Red Cell Distri Width SD 49.5 fl High 3-47 White Blood Count 11.9 K/uL High 3.1-10.7 Laboratory test 07/08/2017 N2N/CCD Import Vitamin 27.1 ng/mL Low 30-100 33, 34 finding D,25-Hydroxy Laboratory test 03/19/2017 N2N/CCD Import Antigliadin Abs, 2 units 0-19 35, 36 finding IgA Antigliadin Abs, IgG 1 units 0-19 37 Antinuclear Antibodies, Ifa Negative 38 Endomysial IgA Antibody Negative Immunoglobulin A 133 mg/dL 87-352 Immunoglobulin G Subclass 4 9 mg/dL 2-96 39 t-Transglutaminase IgA <2 U/mL 0-3 40 t-Transglutaminase IgG <2 U/mL 0-5 41 Laboratory test finding 03/19/2017 [facility] Import Lipase 107 U/L 56-289 42 Triglycerides 148 mg/dL 43 Comprehensive Metabolic Panel 03/19/2017 [facility] Import Alb/Glob 0.9 ratio Albumin 3.0 g/dL Low 3.4-5 Alkaline Phosphatase 68 U/L 45-117 Anion Gap 5 mEq/L Low 8-16 BUN 6 mg/dL Low 7-18 BUN/Creat 15.0 ratio Bilirubin,Total 0.6 mg/dL 0.2-1 Calcium 8.5 mg/dL 8.5-10.1 Carbon Dioxide 27 mmol/L 21-32 Chloride 112 mmol/L High 98-107 Creatinine 0.4 mg/dL Low 0.6-1.3 Globulin 3.2 g/dL 1.9-4.3 Glom Filtration Rate, Estimate >60 mL/min Glucose 93 mg/dL 74-106 If >60 mL/min 44 Potassium 3.8 mmol/L 3.5-5.1 SGPT/Alt 18 U/L 12-78 Sgot/Ast 16 U/L 15-37 Sodium 144 mmol/L 136-145 Total Protein 6.2 g/dL Low 6.4-8.2 Laboratory test finding 03/17/2017 [facility] Import Anisocytosis 0-1+ 45 Aot Request Test(s) added 46 Band% 19 % High 0-8 Hypochromia 0-1+ LDH 286 U/L High 84-246 47 Lipase 1973 U/L High 56-289 48 Lymph% 4 % Low 20-42 Microcytosis 0-1+ Monocyte% 6 % 0-10 Neutrophils% 71 % 33-73 Platelet Estimate Normal Poikilocytosis 0-1+ Polychromasia 0-1+ Slide Review Diff Ordered Tests to be added: LDH Total Cells Counted 100 #CELLS CBS W/Automated Diff 03/17/2017 [facility] Import Baso # 0.01 K/uL 0-0.1 Eos # 0.01 K/uL 0-0.5 Hematocrit 43.6 % 36-46.1 Hemoglobin 13.8 gm/dL 11.6-15.8 Lymph # 0.62 K/uL Low 1-4 Mean Cell Volume 81.3 fl 80.9-99 Mean Corpuscular HGB 25.7 pg Low 25.9-32.7 Mean Corpuscular HGB Conc 31.7 g/dL 30.8-34.3 Mean Platelet Volume 10.3 fL 8.9-12.[address] [place] # 0.96 K/uL High 0.3-0.9 Neut# 12.81 K/uL High 1.8-7 Platelet Count 282 K/uL 150-400 Red Blood Count 5.36 M/uL 3.9-5.4 Red Cell Distri Width %CV 18.6 % High 11.7-14.4 Red Cell Distri Width SD 53.1 fl High 3-47 White Blood Count 14.4 K/uL High 3.1-10.7 Comprehensive Metabolic Panel 03/17/2017 N2N/CCD Import Alb/Glob 1.2 ratio Albumin 4.3 g/dL 3.4-5 Alkaline Phosphatase 100 U/L 45-117 Anion Gap 9 mEq/L 8-16 BUN 21 mg/dL High 7-18 BUN/Creat 26.2 ratio Bilirubin,Total 0.5 mg/dL 0.2-1 Calcium 9.3 mg/dL 8.5-10.1 Carbon Dioxide 25 mmol/L 21-32 Chloride 106 mmol/L 98-107 Creatinine 0.8 mg/dL 0.6-1.3 Globulin 3.6 g/dL 1.9-4.3 Glom Filtration Rate, Estimate >60 mL/min Glucose 162 mg/dL High 74-106 If >60 mL/min 50 Potassium 4.0 mmol/L 3.5-5.1 SGPT/Alt 24 U/L 12-78 Sgot/Ast 14 U/L Low 15-37 51 Sodium 140 mmol/L 136-145 Total Protein 7.9 g/dL 6.4-8.2 Laboratory test finding 03/17/2017 N2N/CCD Import Source: Urine, Clean Cat 52 <See Note> Urine Bilirubin - Dipstick Negative Urine Blood Negative Urine Clarity Clear Urine Color Yellow Urine Glucose - Dipstick Negative mg/dL Urine HCG (Qualitative) Negative 53 Urine Ketone Negative mg/dL Urine Leuk Esterase Negative Urine Nitrite - Dipstick Negative Urine PH 5.0 1 Low 6.5-7.5 Urine Protein - Dipstick Negative mg/dL Urine Specific [place] >=1.030 1.01-1.03 Urine Urobilinogen - Dipstick 0.2 E.U./dL 0.2-1 Laboratory test 01/14/2017 N2N/CCD Import Vitamin 21.9 ng/mL Low 30-100 54, 55 finding D,25-Hydroxy Imaging finding 01/14/2017 N2N/CCD Import Dexa scan <pending> Basic Metabolic 09/18/2016 N2N/CCD Import Anion Gap 6 mmol/L 2-11 Panel BUN/Creatinine Ratio 22.6 1 High 8-20 Blood Urea Nitrogen 12 mg/dL 6-24 Calcium 9.4 mg/dL 8.6-10.3 Chloride 102 mmol/L 101-111 Co2 Carbon Dioxide 29 mmol/L 22-32 Creatinine 0.53 mg/dL 0.51-0.95 Egfr 153.5 1 56 Egfr Non- 119.3 1 Glucose 89 mg/dL 70-100 Potassium 4.4 mmol/L 3.5-5 Sodium 137 mmol/L 133-145 CBC Auto Diff 09/18/2016 N2N/CCD Import Abs Basophils 0.1 10^3/uL 0-0.2 Abs Eosinophils 0.1 10^3/uL 0-0.6 Abs Lymphocytes 1.7 10^3/uL 1-4.8 Abs Monocytes 0.5 10^3/uL 0-0.8 Abs Neutrophils 4.8 10^3/uL 1.5-7.7 Abs Nucleated RBC 0 10^3/uL Basophil % 0.7 % 0-2 Eosinophil % 1.4 % 0-6 Granulocyte % 67.4 % 38-83 Hematocrit 35 % 35-47 Hemoglobin 10.8 g/dL Low 12-16 Lymphocyte % 23.7 % Low 25-47 Mean Corpuscular HGB Conc 30 g/dL Low 31-36 Mean Corpuscular Hemoglobin 22 pg Low 27-31 Mean Corpuscular Volume 73 fL Low 80-97 Mean Platelet Volume 8 um3 7.4-10.4 Monocyte % 6.8 % 1-9 Nucleated Red Blood Cells % 0 1 Platelet Count 286 10^3/uL 150-450 Red Blood Count 4.88 10^6/uL 4-5.4 Red Cell Distribution Width 20 % High 10.5-15 White Blood Count 7.1 10^3/uL 3.5-10.8 Laboratory test finding 09/18/2016 N2N/CCD Import Folate > 20.00 ng/mL Hemoglobin A1c 5.9 % 57 TSH (Thyroid Stimulating Horm) 0.35 mcIU/mL 0.34-5.6 Vitamin B12 210 pg/mL 180-914 58 Vitamin D Total 25(Oh) 15.3 ng/mL Low 30-50 Lipid Profile (Trig/Chol/HDL) 09/18/2016 N2N/CCD Import Cholesterol 181 mg/ dL 59 HDL Cholesterol 47.3 mg/dL 60 LDL Cholesterol 97 mg/dL 61 Triglycerides 183 mg/dL 62 Liver Function Panel 09/18/2016 N2N/CCD Import Albumin 4.3 g/dL 3.2-5.2 Albumin/Globulin Ratio 1.7 1 1-3 Alkaline Phosphatase 64 U/L 34-104 Alt 15 U/L 7-52 Ast 17 U/L 13-39 Direct Bilirubin 0.10 mg/dL 0.03-0.18 Globulin 2.6 g/dL 2-4 Indirect Bilirubin 0.4 mg/dL 0.3-1 Total Bilirubin 0.50 mg/dL 0.2-1 Total Protein 6.9 g/dL 6.4-8.9 Laboratory test 10/08/2013 N2N/CCD Import Esophageal Biopsy See Note 63 finding LDL Cholesterol 09/17/2012 N2N/CCD Import Cholesterol 167 mg/dL 120-200 Profile HDL Cholesterol 40 mg/dL 29-83 LDL-Cholesterol 73 mg/dL 62-185 Triglycerides 269 mg/dL High 16-231 Comprehensive Metabolic Panel 09/17/2012 N2N/CCD Import Alb/Glob 1.2 ratio Albumin 3.8 g/dL 3.5-5 Alkaline Phosphatase 102 U/L 50-136 Anion Gap 12 mEq/L 8-16 BUN 9 mg/dL 5-23 BUN/Creat 12.8 ratio Bilirubin,Total 0.6 mg/dL 0.2-1.2 Calcium 9.2 mg/dL 8.5-10.1 Carbon Dioxide 29 mEq/L 18-29 Chloride 107 mmol/L 98-107 Creatinine 0.7 mg/dL 0.5-1.4 Globulin 3.1 g/dL 1.9-4.3 Glom Filtration Rate, Estimate >60 mL/min Glucose 94 mg/dL 76-115 If >60 mL/min 64 Potassium 4.1 mmol/L 3.5-5.1 SGPT/Alt 27 U/L Low 30-65 Sgot/Ast 17 U/L 16-40 Sodium 144 mmol/L 136-145 Total Protein 6.9 g/dL 6.3-8 Laboratory test 09/17/2012 N2N/CCD Import Glycohemoglobin (A1c) 5.6 % 4.8-6 65 finding eAG 114 mg/dL 1 Because ethnic data is not always readily available, this report includes an eGFR for both -Americans and non- Americans. The National Kidney Disease Education Program (NKDEP) does not endorse the use of the MDRD equation for patients that are not between the ages of 18 and 70, are , have extremes of body size, muscle mass, or nutritional status, or are non- or non-. According to the National Kidney Foundation, irrespective of diagnosis, the stage of the disease is based on the level of kidney function: Stage Description GFR(mL/min/1.73 m(2)) 1 Kidney damage with normal or decreased GFR 90 2 Kidney damage with mild decrease in GFR 60-89 3 Moderate decrease in GFR 30-59 4 Severe decrease in GFR 15-29 5 Kidney failure <15 (or dialysis) 2 Folate, RBC Folate, Hemolysate >620.0 ng/mL Not Estab. 01 Hematocrit 42.4 % 34.0 - 46.6 01 Folate, RBC >1462 ng/mL >498 01 RN [facility] [address] [id number] Dir: Gely Murillo MD For inquiries, the physician may contact Branch: [phone] Lab: Normal Range 180 to 914 Indeterminate Range 145 to 180 Deficient Range <145 4 Because ethnic data is not always readily available, this report includes an eGFR for both -Americans and non- Americans. The National Kidney Disease Education Program (NKDEP) does not endorse the use of the MDRD equation for patients that are not between the ages of 18 and 70, are , have extremes of body size, muscle mass, or nutritional status, or are non- or non-. According to the National Kidney Foundation, irrespective of diagnosis, the stage of the disease is based on the level of kidney function: Stage Description GFR(mL/min/1.73 m(2)) 1 Kidney damage with normal or decreased GFR 90 2 Kidney damage with mild decrease in GFR 60-89 3 Moderate decrease in GFR 30-59 4 Severe decrease in GFR 15-29 5 Kidney failure <15 (or dialysis) 5 Desirable: <200 Borderline High: 200-239 High: >239 6 Low: <40 Desirable: 40-60 High: >60 7 Desirable: <100 Near Optimal: 100-129 Borderline High: 130-159 High: 160-189 Very High: >189 8 Desirable: <150 Borderline High: 150-199 High: 200-499 Very High: >500 9 [facility]. [address] [place] [id number] GYNECOLOGIC CYTOLOGY REPORT Accession Number: [id number] Source of Specimen(s): A: Sure[facility] Vaginal Pap Smear - One Vial Clinical Diagnosis and History: Date of Last Menstrual Period: 2009 Menstrual History: Post-menopausal Treatment History: Hysterectomy Other Clinical Conditions: Last Pap Smear: 2016 normal REFLEX TO HPV ASSAY IF RESULTS OF THIS PAP ARE ASCUS Specimen Adequacy SATISFACTORY FOR EVALUATION SCANT/NO ENDOCERVICAL COMPONENT General Categorization NEGATIVE FOR INTRAEPITHELIAL LESION OR MALIGNANCY Interpretation NEGATIVE FOR INTRAEPITHELIAL LESION OR MALIGNANCY Atrophy Reported: 02/25/2018 07:12 Electronically Signed Out By Nadine KAUR(ASC) dol ICD code: Z00.01 CPT code: A: [id number] 10 JEREMÍAS-RECTAL ABSCESS 11 Note: Persistent reduction for 3 months or more in an eGFR <60 mL/min/1.73 m2 defines CKD. Patients with eGFR values >/=60 mL/min/1.73 m2 may also have CKD if evidence of persistent proteinuria is present. The original MDRD equation for estimated GFR is not valid for patients less than 18 years of age. Additional information may be found at www.kdoqi.org. 12 PERIRECTAL ABSCESS 13 Note: Persistent reduction for 3 months or more in an eGFR <60 mL/min/1.73 m2 defines CKD. Patients with eGFR values >/=60 mL/min/1.73 m2 may also have CKD if evidence of persistent proteinuria is present. The original MDRD equation for estimated GFR is not valid for patients less than 18 years of age. Additional information may be found at www.kdoqi.org. 14 JEREMÍAS-RECTAL ABSCESS 15 NO BOWEL MOVEMENT SINCE FRI 16 URINE, CLEAN CATCH 17 JEREMÍAS-RECTAL ABSCESS 18 BACTEROIDES FRAGILIS GROUP 19 MANY WHITE BLOOD CELLS 20 MODERATE GRAM POSITIVE COCCI 21 MODERATE GRAM NEGATIVE BACILLI 22 METRONDIAZOLE OR CLINDAMYCIN. 23 STREPTOCOCCUS ANGINOSUS 24 KLEBSIELLA PNEUMONIAE 25 BETA STREPTOCOCCUS GROUP B 26 MODERATE GRAM POSITIVE COCCI 27 MANY WHITE BLOOD CELLS 28 MODERATE GRAM NEGATIVE BACILLI 29 PENICILLIN OR AMPICILLIN. 30 Method: Yoombaidel QuickVue One-Step Immunoassay 31 Instrument flagged sample for slide review. Less than 10% Bands seen, no other immature WBC's seen. RBC morphology essentially normal. Platelet estimate=NORMAL 32 Note: Persistent reduction for 3 months or more in an eGFR <60 mL/min/1.73 m2 defines CKD. Patients with eGFR values >/=60 mL/min/1.73 m2 may also have CKD if evidence of persistent proteinuria is present. The original MDRD equation for estimated GFR is not valid for patients less than 18 years of age. Additional information may be found at www.kdoqi.org. 33 R79.9 34 Vitamin D deficiency has been defined by the Quinn of Medicine and an Endocrine Society practice guideline as a level of serum 25-OH vitamin D less than 20 ng/mL (1,2). The Endocrine Society went on to further define vitamin D insufficiency as a level between 21 and 29 ng/mL (2). 1. IOM (Quinn of Medicine). 2010. Dietary reference intakes for calcium and D. [place]: The National Academies Press. 2. Samir MF, Arturo NC, Jayy ARENAS, et al. Evaluation, treatment, and prevention of vitamin D deficiency: an Endocrine Society clinical practice guideline. JCEM. 2010; 96(7):1911-30. Performed at: BUD - [facility] [address] [id number] Commercial Escrow Officer: Gely Murillo MD, Phone: [phone] 35 ACUTE PANCREATITIS 36 Negative 0 - 19 Weak Positive 20 - 30 Moderate to Strong Positive >30 37 Negative 0 - 19 Weak Positive 20 - 30 Moderate to Strong Positive >30 38 Negative <1:80 Borderline 1:80 Positive >1:80 Performed at: BUD - [facility] [address] [id number] Commercial Escrow Officer: Gely Murillo MD, Phone: [phone] Performed at: [address] [id number] Commercial Escrow Officer: Xu Schaefer MD, Phone: [phone] 03/25/17 1412: BUNNY,IFA previously reported as: Negative Negative <1:80 Borderline 1:80 Positive >1:80 Performed at: [address] [id number] Commercial Escrow Officer: Gely Murillo MD, Phone: [phone] Amended result called to: [] - 03/25/17 at 1412 39 03/25/17 1412: IgG SUBCLASS 4 previously reported as: 9 mg/dL Performed at: [address] [id number] Commercial Escrow Officer: Xu Schaefer MD, Phone: [phone] Amended result called to: [] - 03/25/17 at 1412 40 Negative 0 - 3 Weak Positive 4 - 10 Positive >10 Tissue Transglutaminase (tTG) has been identified as the endomysial antigen. Studies have demonstr- ated that endomysial IgA antibodies have over 99% specificity for gluten sensitive enteropathy. 41 Negative 0 - 5 Weak Positive 6 - 9 Positive >9 03/25/17 1412: t-TG, IgG previously reported as: <2 U/mL Negative 0 - 5 Weak Positive 6 - 9 Positive >9 Performed at: [address] [id number] Commercial Escrow Officer: Gely Murillo MD, Phone: [phone] Amended result called to: [] - 03/25/17 at 1412 42 Is Patient Fasting? Non-Fasting 43 Reference Guidelines*: Normal: ............. < 150 mg/dL Borderline High: .... 150-199 mg/dL High: ............... 200-499 mg/dL Very High: .......... > 500 mg/dL * Source: National Cholesterol Education Program (NCEP) 44 Note: Persistent reduction for 3 months or more in an eGFR <60 mL/min/1.73 m2 defines CKD. Patients with eGFR values >/=60 mL/min/1.73 m2 may also have CKD if evidence of persistent proteinuria is present. The original MDRD equation for estimated GFR is not valid for patients less than 18 years of age. Additional information may be found at www.kdoqi.org. 45 ABD PAIN FROM [facility] 46 Tests: [facility] Instructions: 47 CHECKED CALLED CAMILA WITH LIPASE AT 194903/17/17 48 Result confirmed by repeat analysis. 49 03/17/171953: NEUT% previously reported as: 88.8 H % Amended result called to: [] - 03/17/17 at 195303/17/171953: LYMPH % previously reported as: 4.3 L % Amended result called to: [] - 03/17/17 at 195303/17/171953: MONO % previously reported as: 6.7 % Amended result called to: [] - 03/17/17 at 195303/17/171953: EO% previously reported as: 0.1 % Amended result called to: [] - 03/17/17 at 195303/17/171953: BAS% previously reported as: 0.1 % Amended result called to: [] - 03/17/17 at 1953 50 Note: Persistent reduction for 3 months or more in an eGFR <60 mL/min/1.73 m2 defines CKD. Patients with eGFR values >/=60 mL/min/1.73 m2 may also have CKD if evidence of persistent proteinuria is present. The original MDRD equation for estimated GFR is not valid for patients less than 18 years of age. Additional information may be found at www.kdoqi.org. 51 Values below the stated reference ranges of AST and ALT can be seen in normal populations. Clinical correlation is suggested. 52 URINE, CLEAN CATCH 53 FIRST MORNING SPECIMENS GENERALLY CONTAIN THE HIGHEST CONCENTRATION OF HCG AND ARE RECOMMENDED FOR EARLY DETECTION OF . Method: Yoombaidel QuickVue One-Step Immunoassay 54 Z13.820, R79.9 55 Vitamin D deficiency has been defined by the Quinn of Medicine and an Endocrine Society practice guideline as a level of serum 25-OH vitamin D less than 20 ng/mL (1,2). The Endocrine Society went on to further define vitamin D insufficiency as a level between 21 and 29 ng/mL (2). 1. IOM (Quinn of Medicine). 2010. Dietary reference intakes for calcium and D. [place]: The National Academies Press. 2. Samir MF, Arturo NC, Jayy ARENAS, et al. Evaluation, treatment, and prevention of vitamin D deficiency: an Endocrine Society clinical practice guideline. JCEM. 2010; 96(7):1911-30. Performed at: RN - [facility] [address] [id number] Commercial Escrow Officer: Gely Murillo MD, Phone: [phone] 56 Because ethnic data is not always readily available, this report includes an eGFR for both -Americans and non- Americans. The National Kidney Disease Education Program (NKDEP) does not endorse the use of the MDRD equation for patients that are not between the ages of 18 and 70, are , have extremes of body size, muscle mass, or nutritional status, or are non- or non-. According to the National Kidney Foundation, irrespective of diagnosis, the stage of the disease is based on the level of kidney function: Stage Description GFR(mL/min/1.73 m(2)) 1 Kidney damage with normal or decreased GFR 90 2 Kidney damage with mild decrease in GFR 60-89 3 Moderate decrease in GFR 30-59 4 Severe decrease in GFR 15-29 5 Kidney failure <15 (or dialysis) 57 Therapeutic target for the treatment of diabetes Mellitus patients is <7% HBA1C, and in selective patients <6.0%.Please refer to [place] [employer] Diabetic care guidelines for further information. 58 Normal Range 180 to 914 Indeterminate Range 145 to 180 Deficient Range <145 59 Desirable <200 Borderline high 200-239 High >239 60 Low <40 Desirable: 40-60 High: >60 61 Desirable: <100 mg/dL Near Optimal: 100-129 mg/dL Borderline High: 130-159 mg/dL High: 160-189 mg/dL Very High: >189 mg/dL 62 Desirable <150 Borderline high 150-199 High 200-499 Very High >500 63 OPERATION/PROCEDURE Gastroscopy DIAGNOSIS: "ESOPHAGUS, BIOPSY": FRAGMENTS OF GASTRIC AND ESOPHAGEAL MUCOSA OF JUNCTIONAL ORIGIN DEMONSTRATING REACTIVE CHANGES IN A BACKGROUND INFLAMMATION CONSISTENT WITH ESOPHAGITIS AND GASTRITIS, NONSPECIFIC, MILD TO MODERATE. ANTHONY/venancio GROSS "ESOPHAGUS BIOPSY". The specimen is received in an appropriately labeled container. This contains two rounded white colored pieces of soft tissue measuring up to 0.4 cm.; filtered and submitted in toto within a single cassette. /clf MICROSCOPIC Specimen is composed of a mixture of fragments from the esophagus, and stomach. In one piece, there is the combination of squamous and columnar superficial epithelium consistent with junctional mucosa. The squamous component is acanthotic and demonstrates mild spongiosis with exocytosis of inflammatory cells. The glandular component demonstrates mild reactive distortion, and branching associated with varying degrees of chronic inflammation. Goblet cell metaplasia characteristic of Abrams type metaplasia is not observed. PRE OPERATIVE DIAGNOSIS Chronic esophagitis REVIEW CODE CODE: I Signed Electronically signed GANGA LAMB MD 10/11/13 1603 64 Note: Persistent reduction for 3 months or more in an eGFR <60 mL/min/1.73 m2 defines CKD. Patients with eGFR values >/=60 mL/min/1.73 m2 may also have CKD if evidence of persistent proteinuria is present. The original MDRD equation for estimated GFR is not valid for patients less than 18 years of age. Additional information may be found at www.kdoqi.org. 65 A1c value between 5.7% and 6.4% is considered at increased risk for diabetes. A1c value greater than 6.5 % is considered essentially diagnostic for Type II diabetes. Current guidelines recommend a treatment goal of <7% for diabetic patients. This method will measure glycosylated hemoglobin variants, HbS, HbG, HbH, HbWayne, HbC, HbE, etc. Other hemoglobin- opathies may give incorrect results with this test. Procedures Date Code Description Status 09/09/2018 Inject/Drain Joint/Bursa Major W/O US Completed 06/18/2018 61351 EKG Tracing & Interpretation Completed 06/12/2018 Inject/Drain Joint/Bursa Major W/O US Completed 04/01/2018 40588 Injection,Anesthetic Agent, Other Peripheral Nerve Branch Completed 02/25/2018 60473 Mammography Unilateral Completed 02/20/2018 Inject/Drain Joint/Bursa Major W/O US Completed 11/17/2017 Inject/Drain Joint/Bursa Major W/O US Completed 08/04/2017 Inject/Drain Joint/Bursa Major W/O US Completed 06/11/2017 48012 Rad Exam; Foot Comp Completed 03/24/2017 Inject/Drain Joint/Bursa Major W/O US Completed 01/29/2017 39251 Rad Exam; Foot Comp Completed 01/29/2017 15828 Rad Exam; Foot Comp Completed 01/13/2017 48923 Bone Density Study, Single Photon Absorptiometry Completed 01/08/2017 68159 Rad Exam; Foot Comp Completed 12/19/2016 34567 Short Leg Cast Completed 12/11/2016 90996 Rad Exam; Foot Comp Completed 12/11/2016 04207 FX Metatarsal Care Completed 09/26/2016 93833 Arthroscopy,Knee,Meniscectomy Media & Lateral Completed 09/26/2016 95848 Arthroscopy,Knee,Meniscectomy Media & Lateral Completed 09/11/2016 66551 EKG Tracing & Interpretation Completed 07/10/2016 09144 Rad Exam; Foot Comp Completed 06/25/2016 18610 Inject/Drain Joint/Bursa Major W/O US Completed 06/12/2016 53796 Xray Knee 3 Views Completed 03/28/2015 32222 Rad Exam; Foot Comp Completed 09/22/2012 79855 Pure Tone-Air Condition Only Completed 07/31/2012 28173 Colonoscopy Flexible Diagnostic Completed 03/11/2003 95867 EKG, Interpretation Only Completed 03/10/2003 85536 EKG, Interpretation Only Completed Encounters Type Date Location Provider Dx Diagnosis Office Visit 06/18/2018 [facility] Ramu Menjivar.3 Anal fistula 2:30p Z01.818 Encounter for other preprocedural examination Office Visit 04/01/2018 2:30p Orthopedic Jose Angel M79.671 Pain in right Services Of Mary Gutiérrez M.D. foot AT [place] Office Visit 02/25/2018 3:00p Orthopedic Jose Angel M79.671 Pain in right Services Of Mary Gutiérrez M.D. foot AT [place] Office Visit 11/05/2017 4:00p Orthopedic Jose Angel S92.354D Nondisp fx of Services Of Mary Gutiérrez M.D. 5th metatarsal AT [place] bone, r ft, 7thD S92.355D Nondisp fx of 5th metatarsal bone, l ft, 7thD Office Visit 08/04/2017 Orthopedic Noemí Roth M17.0 Bilateral primary 3:00p Services Of DAMARI Victor osteoarthritis of [facility] knee M25.561 Pain in right knee M25.562 Pain in left knee Office Visit 06/11/2017 2:15p Orthopedic Jose Angel S92.354D Nondisp fx of Services Of Mary Gutiérrez M.D. 5th metatarsal AT [place] bone, r ft, 7thD S92.352D Disp fx of 5th metatarsal bone, l ft, 7thD M79.671 Pain in right foot Office Visit 01/17/2017 1:00p Orthopedic Ortho Clinical M25.562 Pain in left [facility] knee Office Visit 07/31/2016 9:30a Orthopedic Alessandra Barone M25.561 Pain in [facility] M.D. right knee M17.11 Unilateral primary osteoarthritis, right knee S83.261A Prph tear of lat mensc, current injury, right knee, init Office Visit 07/24/2016 William Pittman7.11 Unilateral primary 10:30a Services Of Mary Gutiérrez M.D. osteoarthritis, right AT [place] knee Office Visit 07/10/2016 William Pittman7.11 Unilateral primary 3:00p Services Of Mary Gutiérrez M.D. osteoarthritis, right AT [place] knee S92.354K Nondisp fx of 5th metatarsal bone, r ft, 7thK Office Visit 06/25/2016 Orthopedic Abisai Pittman7.11 Unilateral primary 2:30p Services Of Mary Hammer MD osteoarthritis, AT [place] right knee Office Visit 06/12/2016 Orthopedic Jose Angel S92.354D Nondisp fx of 5th 3:00p Services Of Mary Gutiérrez M.D. metatarsal bone, r AT [place] ft, 7thD S92.344D Nondisp fx of 4th metatarsal bone, r ft, 7thD M25.561 Pain in right knee Office Visit 05/08/2016 2:30p Orthopedic Jose Angel S92.344A Nondisp fx of Services Of Mary Gutiérrez M.D. fourth AT [place] metatarsal bone, right foot, init S92.354A Nondisp fx of fifth metatarsal bone, right foot, init Office Visit 04/11/2015 9:00a Orthopedic Jose Angel M76.72 Peroneal Services Of Mary Gutiérrez M.D. tendinitis, left AT [place] leg Office Visit 03/28/2015 8:40a Orthopedic Jose Angel M79.672 Pain in left foot Services Of Mary Gutiérrez M.D. AT [place] Plan of Treatment Future Appointment(s):11/11/2018 1:00 pm - Jose Angel Gutiérrez M.D. at [facility] AT [place]05/12/2019 3:30 pm - Alessandra Barone M.D. at [facility] [place]02/24/2019 3:30 pm - DAMARI Carver at [facility] Primary Care10/21/2018 - Jose Angel Gutiérrez M.D.M79.672 Pain in left footNew Xrays:Foot Left 3+ VWS, Ordered: 10/21/18Follow up:3 weeks
[2018-11-02 17:04] VITALS: BP 128/101
--- NOTE | 2018-11-02 17:27 | ED ---
Lower Extremity - HPI Summary HPI Summary: pt injured her left foot. she is currently being cared for by a local ship fastener. she states she has been wearing a boot. she has been having swelling and tenderness to her let leg starting at her distal calf. her ship fastener sent her to the for further evaluation. she denies any sob/chest pain, n/v. - History of Current Complaint [facility] LEG CONCERN Hx Obtained From: Family/Compactor Driver Onset/Duration: Days Severity Initially: Mild Severity Currently: Mild Pain Intensity: 3 Character Of Pain: Aching Associated Signs And Symptoms: Positive: Swelling, Redness. Negative: Fever, Weakness, Dizziness, Syncope, Abdominal Pain, Knee Pain Aggravating Factor(s): Ambulation Able to Bear Weight: Yes - Allergies/Home Medications Allergies/Adverse Reactions: Allergies Allergy/AdvReac Type Severity Reaction Status Date / Time Adhesive Tape Allergy Blisters Verified 11/02/18 17:00 latex Allergy Rash Verified 11/02/18 17:00 Home Medications: Home Medications NK [No Home Medications Reported] 11/02/18 [History Confirmed 11/02/18] PMH/Surg Hx/FS Hx/Imm Hx Previously Healthy: Yes Endocrine/Hematology History: Denies: Hx Diabetes Cardiovascular History: Reports: Hx Congestive Heart Failure - 2005, in hosptal 2-3 days , ok since, Hx Peripheral Vascular Disease Denies: Hx Hypertension, Hx Pacemaker/ICD, Other Cardiovascular Problems/ Disorders Respiratory History: Reports: Hx Sleep Apnea - PREVIOUS - LOSS 100 POUNDS - NO NEED FOR CPAP GI History: Reports: Hx Gastroesophageal Reflux Disease - NO MED, DIET CONTROL History: Reports: Hx Kidney Stones - 2009 TIMES 2 Denies: Hx Renal Disease Musculoskeletal History: Denies: Hx Scoliosis Sensory History: Reports: Hx Contacts or Glasses - contacts and scontacts Denies: Hx Hearing Aid Opthamlomology History: Reports: Hx Contacts or Glasses - contacts and scontacts Neurological History: Denies: Hx Headaches, Other Neuro Impairments/Disorders Psychiatric History: Denies: Hx Panic Disorder - Cancer History Hx Chemotherapy: No Hx Radiation Therapy: No - Surgical History Surgery Procedure, Year, and Place: 2009 [place] [facility] [place], [place]. 2007 GASTRIC BYPASS SURGERY, [facility]. UMBILICAL HERNIA REPAIR. ANAL FISTULA REPAIR, [place] Hx Anesthesia Reactions: No Infectious Disease History: No Infectious Disease History: Denies: Traveled Outside the [place] in Last 30 Days - Family History Known Family History: Positive: Hypertension - Social History Alcohol Use: Rare Substance Use Type: Reports: None Smoking Status (MU): Never Smoked Tobacco Review of Systems Constitutional: Negative Eyes: Negative ENT: Negative Cardiovascular: Negative Respiratory: Negative Gastrointestinal: Negative Genitourinary: Negative Positive: Myalgia Negative: Bruising Neurological: Negative Psychological: Normal All Other Systems Reviewed And Are Negative: No Physical Exam Triage Information Reviewed: Yes Vital Signs On Initial Exam: Initial Vitals Temp Pulse Resp BP Pulse Ox 97.5 F 74 16 128/101 98 11/02/18 17:00 11/02/18 17:00 11/02/18 17:00 11/02/18 17:00 11/02/18 17:00 Vital Signs Reviewed: Yes Appearance: Positive: Well-Appearing, No Pain Distress, Well-Nourished Skin: Positive: Warm, Skin Color Reflects Adequate Perfusion, Dry Head/Face: Positive: Normal Head/Face Inspection Eyes: Positive: Normal, EOMI, DIANE Neck: Positive: Supple, Nontender Respiratory/Lung Sounds: Positive: Clear to Auscultation, Breath Sounds Present Cardiovascular: Positive: Normal, RRR Abdomen Description: Positive: Nontender, Soft Bowel Sounds: Positive: Present Musculoskeletal: Positive: Normal, Strength/ROM Intact, Pain @ - right calf Neurological: Positive: Normal, Sensory/Motor Intact, Alert, Oriented to Person Place, Time, CN Intact II-III Psychiatric: Positive: Normal AVPU Assessment: Alert Diagnostics - Vital Signs Vital Signs Temp Pulse Resp BP Pulse Ox 11/02/18 17:00 97.5 F 74 16 128/101 98 - Laboratory Lab Statement: Any lab studies that have been ordered have been reviewed, and results considered in the medical decision making process. Lower Extremity Course/Dx - Course Course Of Treatment: pt has been wearing a boot to her left foot secondary to a foot injury. she states that she has been having swelling to her left leg and pain to her calf. she has minimal hyperperfusion to the left lower leg. she does have some lower left calf tenderness. she has no cardiac or respiratory complaints. I think this is a low probability that it is a dvt, however, I cannot be sure. I recommend a us to r/o dvt. we do not have the ability to do a us after 3pm. I recommended she go to the Ed for an US to r/o a dvt. pt was comfortable with the plan. - Diagnoses Provider Diagnoses: Pain of left calf Discharge - Sign-Out/Discharge Documenting (check all that apply): Patient Departure All imaging exams completed and their final reports reviewed: No Studies - Discharge Plan Condition: Stable Disposition: HOME Patient Education Materials: Leg Edema (ED) Referrals: Ryann Matthews PA [Primary Care Provider] - Additional Instructions: Please go immediately to [place] ED for further evaluation of a possible blood clot to your left leg. take tylenol and motrin for pain. return if worse or any new symptoms. You will need follow up with your primary care physician after these evaluations. - Billing Disposition and Condition Condition: STABLE Disposition: Home
== END 2018-11-02 17:32 | disposition home or self-care (01) ==
LOC: UCCORT 16:41
DX: M79.662 Pain in left lower leg (principal)
CPT/HCPCS: 99212; G0463